=== PATIENT | female | born 1965 | race Asian ===

== ENCOUNTER 2018-03-28 23:11 | Emergency (ER) | payer MEDICARE, MEDICAID ==
[~2018-03-28] VITALS: Ht 152.4 cm; Wt 58.0 kg
[~2018-03-28 23:11] MED LIST: FAMO40OR4 PO; HYDR30CR79 TOP; PHEN-786 PO
[2018-03-28 23:49] LABS: URINE HCG NEGATIVE (NEG)
[2018-03-28 23:54] LABS: COLOR,URINE YELLOW (Yellow); GLUCOSE, URINE NEGATIVE (Neg); KETONES,URINE TRACE mg/dl (Neg); LEUKOCYTE ESTERASE ,URINE NEGATIVE (Neg); NITRITES, URINE NEGATIVE (Neg); OCCULT BLOOD,URINE LARGE (Neg); PROTEIN,URINE TRACE mg/dl (Neg); UROBILINOGEN,URINE 0.2 E.U/dL (0.2-1.0)
[2018-03-28 23:55] LABS: CLARITY,URINE SLIGHTLY CLOUDY (Clear); UA COLLECTION TYPE CLN CATCH MIDSTREAM
[2018-03-29 00:01] LABS: MUCUS STRANDS MODERATE /LPF (Neg); SQUAMOUS EPITHELIAL CELL,UR MODERATE /LPF (FEW)
[2018-03-29 00:02] LABS: BACTERIA,URINE 2+ /HPF (Neg); RBC,URINE NONE SEEN /HPF (0-2); WBC,URINE 0-4 /HPF (0-4)
[2018-03-29 00:04] LABS: BASOPHILS % (AUTO) 0.3 % (0-1); EOSINOPHILS # (AUTO) 0.3 X10'3 (0-0.9); EOSINOPHILS % (AUTO) 2.5 % (0-6); HEMATOCRIT 41.9 % (35.0-45.0); HEMOGLOBIN 14.2 g/dl (12.0-16.0); LYMPHOCYTES # (AUTO) 2.4 X10'3 (1.1-4.8); LYMPHOCYTES % (AUTO) 21.8 % (21-51); MEAN CORPUSCULAR HEMOGLOBIN 29.2 PG (27.0-31.0); MEAN CORPUSCULAR HGB CONC 33.8 % (33.0-36.5); MEAN CORPUSCULAR VOLUME 86.3 FL (78-98); MEAN PLATELET VOLUME 7.8 FL (7.4-10.4); MONOCYTES # (AUTO) 0.3 X10'3 (0-0.9); MONOCYTES % (AUTO) 2.8 % (2-12); NEUTROPHILS # (AUTO) 7.8 X10'3 (1.8-7.7); NEUTROPHILS % (AUTO) 72.6 % (42-75); PLATELET COUNT 188 X10'3 (140-440); RED BLOOD COUNT 4.85 X10'6 (4.20-5.60); WHITE BLOOD COUNT 10.8 X10'3 (4.5-11.0)
[2018-03-29 00:24] LABS: ALANINE AMINOTRANSFERASE 36 U/L (12-78); ALBUMIN 3.8 G/DL (3.4-5.0); ALBUMIN/GLOBULIN RATIO 0.8 (1.1-1.5); ALKALINE PHOSPHATASE 96 IU/L (46-116); ANION GAP 6 (8-16); ASPARTATE AMINO TRANSFERASE 21 U/L (10-37); BILIRUBIN,TOTAL 0.2 MG/DL (0.1-1.0); BLOOD UREA NITROGEN 17 MG/DL (7-18); BUN/CREATININE RATIO 19.8 (6.6-38.0); CALCIUM 8.8 MG/DL (8.5-10.1); CHLORIDE 102 MMOL/L (99-107); CREATININE 0.86 MG/DL (0.40-0.90); GLUCOSE 123 MG/DL (70-104); POTASSIUM 3.2 MMOL/L (3.5-5.1); SODIUM 139 MMOL/L (135-145); TOTAL CARBON DIOXIDE 30.7 MMOL/L (24-32); TOTAL PROTEIN 8.5 G/DL (6.4-8.2); eGFR 69 ML/MIN
[2018-03-29 00:25] LABS: PROTHROMBIN TIME 9.8 SECONDS (9.0-12.0)
[2018-03-29] MEDS ORDERED: diphenhydrAMINE 50 mg/ml inj IV ONE (01:30)
[2018-03-29] MEDS ORDERED: ondansetron/PF 4mg/2ml inj IV ONE (01:30)
[2018-03-29] MEDS ORDERED: ondansetron 4mg rapidly disintigrating tab PO ONE (01:35)
[2018-03-29] MEDS ORDERED: acetaminophen 325mg tablet PO ONE (01:35)
[2018-03-29] MEDS ORDERED: dicyclomine 10 MG capsule PO ONE (01:35)
[2018-03-29 02:11] LABS: CREATINE KINASE 74 U/L (26-192); TROPONIN I < 0.04 NG/ML (0.0-0.05)
[2018-03-29] MEDS ORDERED: AMOX-580 PO (03:22)
[2018-03-29] MEDS ORDERED: ACET-2615 PO (03:22)
[2018-03-29] MEDS ORDERED: ONDA8TAB6 PO (03:22)
[2018-03-29] MEDS ORDERED: DICY10CA88 PO (03:22)
[2018-03-29 03:34] VITALS: BP 127/70
== END 2018-03-29 03:43 | disposition home or self-care (01) ==
LOC: ER 23:11
DX: R10.30 Lower abdominal pain, unspecified (principal); R11.0 Nausea; R19.7 Diarrhea, unspecified; K21.9 Gastro-esophageal reflux disease without esophagitis; G89.29 Other chronic pain; Z79.899 Other long term (current) drug therapy
CPT/HCPCS: 36415; 74176; 80053; 81001; 81025; 82550; 84484; 85025; 85610; 99284

== ENCOUNTER 2018-03-29 09:24 | Emergency (ER) | payer MEDICARE, MEDICAID ==
[~2018-03-29] VITALS: Ht 154.9 cm; Wt 60.5 kg
[~2018-03-29 09:24] MED LIST changes: +ACET-2615 PO; +AMOX-580 PO; +DICY10CA88 PO; +ONDA8TAB6 PO
[2018-03-29 10:48] VITALS: BP 126/72
[2018-03-29] MEDS ORDERED: famotidine 10mg tablet PO STA (11:03)
[2018-03-29] MEDS ORDERED: dicyclomine 10 MG capsule PO ONE (11:05)
[2018-03-29] MEDS ORDERED: ondansetron 4mg rapidly disintigrating tab PO ONE (11:05)
[2018-03-29 11:06] LABS: CLARITY,URINE CLEAR (Clear); COLOR,URINE YELLOW (Yellow); GLUCOSE, URINE NEGATIVE (Neg); KETONES,URINE NEGATIVE (Neg); LEUKOCYTE ESTERASE ,URINE NEGATIVE (Neg); NITRITES, URINE NEGATIVE (Neg); OCCULT BLOOD,URINE MODERATE (Neg); PROTEIN,URINE NEGATIVE (Neg); UROBILINOGEN,URINE 0.2 E.U/dL (0.2-1.0)
[2018-03-29 11:10] LABS: UA COLLECTION TYPE CLN CATCH MIDSTREAM
[2018-03-29 11:20] LABS: BASOPHILS % (AUTO) 0.3 % (0-1); EOSINOPHILS # (AUTO) 0.2 X10'3 (0-0.9); EOSINOPHILS % (AUTO) 1.7 % (0-6); HEMATOCRIT 40.3 % (35.0-45.0); HEMOGLOBIN 13.7 g/dl (12.0-16.0); LYMPHOCYTES # (AUTO) 1.2 X10'3 (1.1-4.8); LYMPHOCYTES % (AUTO) 13.6 % (21-51); MEAN CORPUSCULAR HEMOGLOBIN 29.3 PG (27.0-31.0); MEAN CORPUSCULAR HGB CONC 34.1 % (33.0-36.5); MEAN CORPUSCULAR VOLUME 86.1 FL (78-98); MONOCYTES # (AUTO) 0.3 X10'3 (0-0.9); MONOCYTES % (AUTO) 3.7 % (2-12); NEUTROPHILS # (AUTO) 7.3 X10'3 (1.8-7.7); NEUTROPHILS % (AUTO) 80.7 % (42-75); PLATELET COUNT 191 X10'3 (140-440); RED BLOOD COUNT 4.67 X10'6 (4.20-5.60); RED CELL DISTRIBUTION WIDTH 12.1 % (11.5-14.5); WHITE BLOOD COUNT 9.1 X10'3 (4.5-11.0)
[2018-03-29] MEDS ORDERED: famotidine 20mg tablet PO STA (11:24)
[2018-03-29 11:36] LABS: ALANINE AMINOTRANSFERASE 33 U/L (12-78); ALBUMIN 3.7 G/DL (3.4-5.0); ALBUMIN/GLOBULIN RATIO 0.8 (1.1-1.5); ALKALINE PHOSPHATASE 86 IU/L (46-116); ANION GAP 7 (8-16); ASPARTATE AMINO TRANSFERASE 21 U/L (10-37); BILIRUBIN,TOTAL 0.3 MG/DL (0.1-1.0); BLOOD UREA NITROGEN 10 MG/DL (7-18); BUN/CREATININE RATIO 16.4 (6.6-38.0); CALCIUM 8.9 MG/DL (8.5-10.1); CHLORIDE 103 MMOL/L (99-107); CREATININE 0.61 MG/DL (0.40-0.90); GLUCOSE 101 MG/DL (70-104); POTASSIUM 3.6 MMOL/L (3.5-5.1); SODIUM 139 MMOL/L (135-145); TOTAL CARBON DIOXIDE 28.9 MMOL/L (24-32); TOTAL PROTEIN 8.3 G/DL (6.4-8.2); eGFR > 90 ML/MIN
[2018-03-29 11:37] LABS: PARTIAL THROMBOPLASTIN TIME 27 SECONDS (22-32); PROTHROMBIN TIME 9.9 SECONDS (9.0-12.0)
[2018-03-29 11:47] LABS: BACTERIA,URINE NONE SEEN /HPF (Neg); MUCUS STRANDS NONE SEEN /LPF (Neg); RBC,URINE 0-2 /HPF (0-2); SQUAMOUS EPITHELIAL CELL,UR FEW /LPF (FEW); WBC,URINE NONE SEEN /HPF (0-4)
== END 2018-03-29 12:04 | disposition home or self-care (01) ==
LOC: ER 09:25
DX: K64.9 Unspecified hemorrhoids (principal); K52.9 Noninfective gastroenteritis and colitis, unspecified; K21.9 Gastro-esophageal reflux disease without esophagitis; G89.29 Other chronic pain; Z79.2 Long term (current) use of antibiotics; Z79.899 Other long term (current) drug therapy
CPT/HCPCS: 36415; 71045; 80053; 81001; 85025; 85610; 85730; 86885; 86900; 86901; 93005; 99284

== ENCOUNTER 2021-10-13 08:43 | Day surgery (SDC) | payer MEDICARE, MEDICAID ==
[~2021-10-13] VITALS: Ht 152.4 cm; Wt 56.8 kg
[~2021-10-13 08:43] MED LIST changes: -ACET-2615 PO; -AMOX-580 PO
[2021-10-13 09:09] VITALS: BP 137/76
[2021-10-13] MEDS ORDERED: fentaNYL/PF 50MCG/1 ML 2ML syringe ONE (09:12)
[2021-10-13] MEDS ORDERED: MIDAZolam 1 MG/ML 5ML VIAL ONE (09:12)
[2021-10-13] MEDS ORDERED: ALBU0.63 INH (09:14)
[2021-10-13] MEDS ORDERED: CYCL-394 PO (09:15)
[2021-10-13] MEDS ORDERED: STEROID (09:16)
[2021-10-13] MEDS ORDERED: ONDA8TAB13 PO (09:18)
[2021-10-13] MEDS ORDERED: DICY10CA88 PO (09:18)
[2021-10-13] MEDS ORDERED: FAMO40TA59 PO (09:19)
[2021-10-13] MEDS ORDERED: HYDR25SU32 RC (09:19)
[2021-10-13 10:55] VITALS: BP 110/64
[2021-10-13 11:05] VITALS: BP 96/52
[2021-10-13 11:15] VITALS: BP 97/59
[2021-10-13 11:25] VITALS: BP 99/63
== END 2021-10-13 11:28 | disposition home or self-care (01) ==
LOC: GI LAB 08:43
PROVIDERS: ATTEND Internal Medicine Gastroenterology
DX: Z09 Encounter for follow-up examination after completed treatment for conditions other than malignant neoplasm (principal); K57.30 Diverticulosis of large intestine without perforation or abscess without bleeding; K64.8 Other hemorrhoids; Z86.010 Personal history of colon polyps
CPT/HCPCS: G0105; G0500; J2250; J3010; J7030; Z7512; 45378; 99152; 99153; A4620